=== PATIENT | female | born 1985 | race Caucasian/White ===

== ENCOUNTER 2017-06-19 17:19 | Inpatient (IN) ==
[2017-06-19] MEDS ORDERED: PROMETHAZINE 25 MG/1 ML VIAL IM PRN (18:31)
[2017-06-19] MEDS ORDERED: MEPERIDINE 50 MG/1 ML VIAL IV PRN (18:31)
[2017-06-19] MEDS: LACTATED RINGERS 1,000 ML IV SCH (18:48)
[2017-06-20] MEDS: LACTATED RINGERS 1,000 ML IV SCH ×2 (04:33→08:15)
[2017-06-20] MEDS ORDERED: CITRIC ACID/SODIUM CITRATE 30 ML UDCUP PO PRN (06:16)
[2017-06-20] MEDS ORDERED: FAMOTIDINE 20 MG/2 ML VIAL IV PRN (06:16)
[2017-06-20] MEDS ORDERED: ceFAZolin 2,000 MG in PREMIX 1 EACH IV ONE (06:16)
[2017-06-20] MEDS ORDERED: OXYTOCIN/LR 30 UNIT/1,000 ML BAG IV PRN (06:19)
[2017-06-20] MEDS ORDERED: ONDANSETRON 4 MG/2 ML VIAL IV PRN ×2 (06:20→12:50)
[2017-06-20 06:50] LABS: Basophils % 0.1 % (0.0-0.8); Eosinophils # 0.1 10*3/uL (0.0-0.87); Eosinophils % 0.5 % (0.00-10.9); Hematocrit 35.6 VOL% (35.7-47.0); Hemoglobin 11.7 GM/DL (12.0-16.0); Immature Granulocytes % 0.5 %; Immature Granulocytes Absolute 0.05 #; Lymphocytes # 2.7 10*3/uL (1.4-4.0); Mean Corpuscular HGB Conc 32.9 GM/DL (32-36); Mean Corpuscular Hemoglobin 28 PG (27-34); Mean Corpuscular Volume 86.4 FL (87-102); Mean Platelet Volume 9.2 FL (9.6-12.0); Monocytes # 0.6 10*3/uL (0.11-0.8); Monocytes % 6.3 % (1.7-12.7); Neutrophils # 6.2 10*3/uL (1.4-7.4); Neutrophils % 64.6 % (38.7-73.9); Platelet Count 269 T/CUMM (130-400); Red Blood Count 4.12 MC/CUMM (3.8-5.5); White Blood Count 9.6 T/CUMM (4-12)
[2017-06-20] MEDS ORDERED: OXYTOCIN 10 UNIT/ML VIAL ONE (07:12)
[2017-06-20 07:21] LABS: Alanine Aminotransferase 11 U/L (13-56); Albumin 2.2 G/DL (3.4-5.0); Alkaline Phosphatase 194 U/L (45-117); Aspartate Amino Transferase 12 U/L (0-37); Bilirubin,Total < 0.39 MG/DL (0.2-1.0); Blood Urea Nitrogen 7 MG/DL (7-18); Calcium 8.6 MG/DL (8.5-10.1); Glucose 91 MG/DL (74-106); Osmolality,Calculated 270.8 MOS/KG (273-304); Sodium 137 MMOL/L (136-145)
[2017-06-20] MEDS ORDERED: BUPIVACAINE SPINAL 0.75% 2 ML AMP SPINAL ONE (08:21)
[2017-06-20 08:27] LABS: Apearance,Urine CLEAR (Clear); Bilirubin,Urine Negative (Negative); Blood, Urine Negative (Negative); Glucose,Urine (UA) Negative (Negative); Ketones,Urine Negative (Negative); Mucus,Urine Occasional /LPF (Occasional); Nitrite,Urine Negative (Negative); Protein,Urine Negative; RBC,Urine <1 /HPF (0-4); Squamous Epithelial Cell,Urine Occasional /HPF (0-10); Urine Color Straw (Yellow); Urine Specific Gravity 1.009 (1.001-1.035); Urine Urobilinogen < 2.0 EU/DL (0.2-1.0)
[2017-06-20 09:44] LABS: Cord Arterial Blood HCO3 24.4 MMOL/L
[2017-06-20 09:45] LABS: Cord Venous Blood HCO3 28.4 MMOL/L; Cord Venous Blood PCO2 51.7 MMHG; Cord Venous Blood PO2 29.9 MMHG
[2017-06-20] MEDS ORDERED: OXYTOCIN/LR 20 UNIT/1,000 ML BAG IV ONE ×2 (11:16→12:50)
[2017-06-20] MEDS ORDERED: LACTATED RINGERS 1,000 ML IV SCH (12:50)
[2017-06-20] MEDS ORDERED: SIMETHICONE CHEW 80 MG TABLET PO PRN (12:50)
[2017-06-20] MEDS ORDERED: ACETAMINOPHEN 325 MG TABLET PO PRN (12:50)
[2017-06-20] MEDS ORDERED: MAGNESIUM HYDROXIDE SUSP 30 ML UDCUP PO PRN (12:50)
[2017-06-20] MEDS ORDERED: RHO(D) IMMUNE GLOBULIN 300 MCG SYRINGE IM ONE (12:50)
[2017-06-20] MEDS ORDERED: fentaNYL 100 MCG/2 ML VIAL ONE (16:27)
[2017-06-20] MEDS ORDERED: MIDAZOLAM 2 MG/2 ML VIAL ONE (16:27)
[2017-06-20] MEDS ORDERED: MORPHINE 10 MG/10 ML VIAL ONE (16:27)
[2017-06-20 17:07] LABS: Basophils % 0.1 % (0.0-0.8); Eosinophils % 0.3 % (0.00-10.9); Hematocrit 33.2 VOL% (35.7-47.0); Hemoglobin 11.6 GM/DL (12.0-16.0); Immature Granulocytes % 0.5 %; Immature Granulocytes Absolute 0.05 #; Lymphocytes # 2.1 10*3/uL (1.4-4.0); Lymphocytes % 19.6 % (21.3-54.2); Mean Corpuscular HGB Conc 34.9 GM/DL (32-36); Mean Corpuscular Hemoglobin 29 PG (27-34); Mean Platelet Volume 9.1 FL (9.6-12.0); Monocytes # 0.5 10*3/uL (0.11-0.8); Monocytes % 4.9 % (1.7-12.7); Neutrophils # 8.2 10*3/uL (1.4-7.4); Neutrophils % 74.6 % (38.7-73.9); Platelet Count 231 T/CUMM (130-400); Red Cell Distribution Width 13.8 % (9.3-17.3); White Blood Count 10.9 T/CUMM (4-12)
[2017-06-21] MEDS: DOCUSATE SODIUM 100 MG CAPSULE PO SCH ×3 (02:32→20:52)
[2017-06-21 04:04] LABS: Eosinophils % 0.3 % (0.00-10.9); Immature Granulocytes % 0.4 %; Immature Granulocytes Absolute 0.05 #; Lymphocytes # 1.8 10*3/uL (1.4-4.0); Lymphocytes % 16.5 % (21.3-54.2); Mean Corpuscular HGB Conc 34.3 GM/DL (32-36); Mean Corpuscular Hemoglobin 29 PG (27-34); Mean Corpuscular Volume 84.1 FL (87-102); Monocytes # 0.7 10*3/uL (0.11-0.8); Monocytes % 6.6 % (1.7-12.7); Neutrophils # 8.5 10*3/uL (1.4-7.4); Neutrophils % 76.2 % (38.7-73.9); Platelet Count 239 T/CUMM (130-400); Red Blood Count 4.16 MC/CUMM (3.8-5.5); Red Cell Distribution Width 14.1 % (9.3-17.3); White Blood Count 11.1 T/CUMM (4-12)
[2017-06-21] MEDS: MULTIVITAMIN (PRENATAL) TABLET PO SCH (08:21)
[2017-06-21] MEDS: IBUPROFEN 800 MG TABLET PO PRN ×2 (12:21→20:55)
[2017-06-22 07:35] VITALS: BP 143/87
[2017-06-22] MEDS: MULTIVITAMIN (PRENATAL) TABLET PO SCH (09:37)
[2017-06-22] MEDS: DOCUSATE SODIUM 100 MG CAPSULE PO SCH (09:37)
[2017-06-22] MEDS: IBUPROFEN 800 MG TABLET PO PRN (09:43)
== END 2017-06-22 12:45 | disposition home or self-care (01) | DRG 540 ==
LOC: N.LDOUT 17:19 → N.LD 17:20 → N.OB 06-20 12:40
PROVIDERS: ADMIT Obstetrics & Gynecology; ATTEND Obstetrics & Gynecology
PROC: LDCSECT (ICD-10-PCS; 2017-06-20 10:35)